=== PATIENT | male | born 1975 | race Caucasian/White ===

== ENCOUNTER 2017-01-23 12:24 | Emergency (ER) | payer OTHER ==
[2017-01-23] MEDS ORDERED: Adacel (T-DAP) 0.5 ML VIAL ONE (12:51)
[2017-01-23] MEDS ORDERED: cloNIDine HCl 0.1 MG TAB ONE (13:10)
[2017-01-23] MEDS ORDERED: Sulfameth/Trimethoprim DS 800-160mg TAB ONE (13:10)
[2017-01-23] MEDS ORDERED: HYDROcodone/Acetaminophen 10/325 mg Tablet ONE (13:11)
[2017-01-23] MEDS ORDERED: Silver Sulfadiazine 1% Cream 50 GM JAR ONE (13:12)
== END 2017-01-23 13:50 | disposition home or self-care (01) ==
LOC: MADERS 12:24
DX: T22.211A Burn of second degree of right forearm, initial encounter (principal); I10 Essential (primary) hypertension; X19.XXXA Contact with other heat and hot substances, initial encounter
CPT/HCPCS: 90471; 90715